=== PATIENT | male | born 1975 | race Hispanic/Latino ===

== ENCOUNTER 2018-09-21 21:07 | Emergency (ER) | payer BC, OTHER ==
--- NOTE | 2018-09-21 22:02 | Event Note ---
ED Screening Note ED Screening Note: pt states he last had ETOH yesterday last time he was in a facility was March +cocaine last yesterday [facility] N/V/D tremors generalized body aches anxiety he is currently at [facility] facility concerned for dehydration PMHx Crohns no allergies to meds +smoker This initial assessment/diagnostic orders/clinical plan/treatment(s) is/are subject to change based on patients health status, clinical progression and re- assessment by fellow clinical providers in the ED. Further treatment and workup at subsequent clinical providers discretion. Patient/guardian urged not to elope from the ED as their condition may be serious if not clinically assessed and managed. Initial orders include: labs
[2018-09-21 22:04] VITALS: BP 111/77
[2018-09-21 22:18] LABS: Basophils % (Auto) 0.9 % (0.0-1.8); Eosinophils # (Auto) 0.1 K/mm3 (0.0-0.4); Hemoglobin 14.2 gm/dl (11.8-15.2); Lymphocytes % (Auto) 37.2 % (13.4-35.0); Mean Corpuscular HGB Conc 35 % (32-34); Mean Corpuscular Volume 88 fl (84-94); Monocytes # (Auto) 0.4 K/mm3 (0.0-0.8); Monocytes % (Auto) 8.3 % (0.0-7.3); Platelet Count 263 K/mm3 (140-440); Red Blood Count 4.66 M/mm3 (3.65-5.03); Red Cell Distribution Width 13.6 % (13.2-15.2)
[2018-09-21 22:42] LABS: Albumin 4.3 g/dL (3.9-5); Calcium 9.6 mg/dL (8.4-10.2)
[2018-09-21] MEDS ORDERED: ZOFRAN IV STA (22:53)
[2018-09-21] MEDS ORDERED: NACL 0.9% 1000 ML 1,000 ML IV ONE (22:53)
--- NOTE | 2018-09-22 01:06 | Emergency Department Report ---
ED N/V/D HPI - General Chief complaint: Medical Clearance Stated complaint: DEHYDRATION/ANXIETY Time Seen by Provider: 09/21/18 21:58 Source: patient Mode of arrival: Ambulatory Limitations: No Limitations - History of Present Illness Initial comments: 43-year-old male currently in inpatient detox for alcohol and cocaine abuse which she was admitted for similar episode in March of this year as well. The detox process. The reported some episodes of nausea and vomiting beginning to become worse, possible dehydration, so wanted to be evaluated in the emergency department. MD complaint: nausea, vomiting -: Gradual Associated Abdominal Pain: No Severity: mild Improves with: none Worsens with: none Associated Symptoms: nausea/vomiting. denies: myalgias, chest pain, diaph oresis, headaches, loss of appetite, malaise, rash, shortness of breath, syncope, weakness - Related Data Allergies Allergy/AdvReac Type Severity Reaction Status Date / Time No Known Allergies Allergy Unverified 09/21/18 21:35 ED Review of Systems ROS: Stated complaint: DEHYDRATION/ANXIETY Other details as noted in HPI Comment: All other systems reviewed and negative ED Past Medical Hx - Past Medical History Previous Medical History?: Yes Hx Hypertension: No Hx CVA: No Hx Heart Attack/AMI: No Hx Congestive Heart Failure: No Hx Diabetes: No Hx Deep Vein Thrombosis: No Hx Pulmonary Embolism: No Hx GERD: No Hx Liver Disease: No Hx Renal Disease: No Hx of Cancer: No Hx Sickle Cell Disease: No Hx Arthritis: No Hx Headaches / Migraines: No Hx Seizures: No Hx Kidney Stones: No Hx Psychiatric Treatment: No Hx Asthma: No Hx COPD: No Hx Tuberculosis: No Hx Dementia: No Hx HIV: No Additional medical history: chrons - Surgical History Past Surgical History?: No Hx Coronary Stent: No Hx Open Heart Surgery: No Hx Pacemaker: No Hx Internal Defibrillator: No Hx Cholecystectomy: No Hx Appendectomy: No Hx Breast Surgery: No Additional Surgical History: chrons - Social History Smoking Status: Former Smoker Substance Use Type: Alcohol, Cocaine ED Physical Exam - General Limitations: No Limitations General appearance: alert, in no apparent distress, other (resting comfortably in no acute respiratory distress) - Head Head exam: Present: atraumatic, normocephalic - Eye Eye exam: Present: normal appearance - ENT ENT exam: Present: mucous membranes moist - Neck Neck exam: Present: normal inspection - Respiratory Respiratory exam: Present: normal lung sounds bilaterally. Absent: respiratory distress, wheezes, rales - Cardiovascular Cardiovascular Exam: Present: regular rate, normal rhythm. Absent: systolic mu rmur, diastolic murmur, rubs, gallop - GI/Abdominal GI/Abdominal exam: Present: soft, normal bowel sounds - Rectal Rectal exam: Present: deferred - Extremities Exam Extremities exam: Present: normal inspection - Back Exam Back exam: Present: normal inspection - Neurological Exam Neurological exam: Present: alert, oriented X3 - Psychiatric Psychiatric exam: Present: normal affect, normal mood - Skin Skin exam: Present: warm, dry, intact, normal color. Absent: rash ED Course Vital Signs 09/21/18 21:59 Temperature 98.2 F Pulse Rate 95 H Respiratory 18 Rate Blood Pressure 111/77 Blood Pressure 111/77 [Right] O2 Sat by Pulse 100 Oximetry ED Medical Decision Making - Lab Data Result diagrams: 09/21/18 22:05 09/21/18 22:05 - Medical Decision Making 43-year-old male ran a detox with nausea and vomiting and mild dehydration. I discussed with Mr. Haro. His laboratory data and the recommendation for IV fluids due to him actively detoxing and having episodes of vomiting and been an inpatient at the detox facility. He initially had refused, but then later in the conversation, discussion had agreed to the IV fluids. However, when the nurse went in to start fluids. He again changes mind and refused. Later in the visit. He requested to speak with me again upon entry into the room. He had denied having any conversations with this author. The patient was asking repeatedly where his sitter was who had left the room while he was sleeping. I reiterated our interaction involving discussion of his labs and again recommended IV fluids, however, he stated he wanted to be discharged as he was ready to return to the facility. Critical care attestation.: If time is entered above; I have spent that time in minutes in the direct care of this critically ill patient, excluding procedure time. ED Disposition Clinical Impression: Nausea & vomiting, Dehydration, Admitted to alcohol detoxification center Disposition: DC-01 TO HOME OR SELFCARE Is pt being admited?: No Does the pt Need Aspirin: No Condition: Undetermined Instructions: Dehydration (ED), Acute Nausea and Vomiting (ED) Referrals: [facility] [Provider Group] - 3-5 Days
[2018-09-22 02:22] LABS: Bilirubin,Urine NEG (Negative); Blood,Urine NEG (Negative); Color,Urine Amber (Yellow); Mucus,Urine 2+ /HPF; Sperm,Urine 1+ /HPF (NP); Urobilinogen,Urine < 2.0 mg/dL (<2.0)
[2018-09-22 02:26] LABS: Cannabinoid Screen,Urine PRESUMPTIVE NEGATIVE; Cocaine Screen,Urine PRESUMPTIVE NEGATIVE; Methadone Screen,Urine PRESUMPTIVE NEGATIVE; Opiate Screen,Urine PRESUMPTIVE NEGATIVE
[2018-09-22 02:48] LABS: Amphetamine Screen,Urine PRESUMPTIVE POSITIVE; Benzodiazepines Screen,Urine PRESUMPTIVE POSITIVE
== END 2018-09-22 02:20 | disposition home or self-care (01) ==
LOC: ED 21:07
DX: E86.0 Dehydration (principal); F10.239 Alcohol dependence with withdrawal, unspecified; F14.10 Cocaine abuse, uncomplicated; Z87.891 Personal history of nicotine dependence; Z87.19 Personal history of other diseases of the digestive system
CPT/HCPCS: 36415; 80053; 80307; 81001; 83690; 85025; 96361; 96374; 99283; G0480; J2405; J7030; 80320